=== PATIENT | female | born 1990 ===

== ENCOUNTER 2018-05-06 08:26 | Emergency (ER) | payer OTHER ==
[~2018-05-06] VITALS: Ht 154.9 cm; Wt 63.5 kg
== END 2018-05-06 13:36 | disposition home or self-care (01) ==
LOC: ER 08:26
DX: O20.0 Threatened abortion (principal); Z34.81 Encounter for supervision of other normal pregnancy, first trimester

== ENCOUNTER 2018-07-12 07:35 | Day surgery (SDC) | payer OTHER ==
[~2018-07-12] VITALS: Ht 154.9 cm; Wt 61.2 kg
== END 2018-07-12 15:40 | disposition home or self-care (01) ==
LOC: ER 07:35 → CIR.AMB 07:40
DX: O03.4 Incomplete spontaneous abortion without complication (principal)